=== PATIENT | male | born 1980 | race Caucasian/White ===

== ENCOUNTER 2016-12-17 18:22 | Emergency (ER) | payer BC ==
[2016-12-17 18:36] VITALS: BP 151/98; BMI 29.6
[2016-12-17] MEDS ORDERED: DEMEROL INJ IM ONE (18:54)
[2016-12-17] MEDS ORDERED: ZOFRAN INJ 4 MG VIAL IM ONE (18:54)
[2016-12-17] MEDS ORDERED: ZOFRAN INJ 4 MG VIAL ONE (18:58)
[2016-12-17] MEDS ORDERED: DEMEROL INJ ONE (18:58)
[2016-12-17 19:12] LABS: BASOPHILS # (AUTO) 0.1 X10^3/uL (0.0-0.1); BASOPHILS % (AUTO) 0.7 % (0.2-1.0); EOSINOPHILS # (AUTO) 0.4 x10^3/uL (0.0-0.2); EOSINOPHILS % (AUTO) 3.6 % (0.9-2.9); HEMATOCRIT 45.8 % (42.0-54.0); LYMPHOCYTES # (AUTO) 2.3 X10^3/uL (1.3-2.9); LYMPHOCYTES % (AUTO) 22.8 % (21.0-51.0); MEAN CORPUSCULAR HEMOGLOBIN 29.9 pg (27.0-34.0); MEAN CORPUSCULAR HGB CONC 34.9 g/dL (33.0-35.0); MEAN CORPUSCULAR VOLUME 85.7 fL (80.0-100.0); MEAN PLATELET VOLUME 8.4 fL (7.4-11.0); MONOCYTES # (AUTO) 0.6 x10^3/uL (0.3-0.8); MONOCYTES % (AUTO) 6.2 % (0.0-13.0); NEUTROPHILS # (AUTO) 6.7 x10^3/uL (2.2-4.8); NEUTROPHILS % (AUTO) 66.7 % (42.0-75.0); PLATELET COUNT 184 X10^3/uL (150.0-450.0); RED BLOOD COUNT 5.35 X10^6/uL (4.7-6.0); WHITE BLOOD COUNT 10.1 X10^3/uL (3.6-10.0)
--- NOTE | 2016-12-17 19:25 | CT ---
STUDY: CT HEAD WITHOUT CONTRAST HISTORY: Severe headaches, left side of head. TECHNIQUE: Multiple axial images of the head were obtained from the skull base to the vertex without administration of IV contrast. COMPARISON: None. FINDINGS: The sulci, cisterns and ventricles are age appropriate. There is no evidence of acute terr itorial infarction, hemorrhage, mass, mass effect, or midline shift. There are no abnormal intra-axia l or extra-axial fluid collections. There is no evidence of acute osseous abnormality or significant soft tissue swelling. Visualized par anasal sinuses and mastoid air cells are predominately clear. IMPRESSION: 1. No evidence of acute intracranial abnormality. Reported By:
[2016-12-17 19:29] LABS: BLOOD UREA NITROGEN 8 mg/dL (7-18); CALCIUM 8.8 mg/dL (8.5-10.1); CARBON DIOXIDE 29.2 mmol/L (21-32); CHLORIDE 102 mmol/L (98-107); SODIUM 139 mmol/L (136-145); TROPONIN I < 0.02 ng/mL (0-1.5); eGFR BLACK RACES > 60 (>60); eGFR NON BLACK RACES 56 (>60)
[2016-12-17 19:34] LABS: ALANINE AMINOTRANSFERASE 56 Units/L (12-78); ALBUMIN 3.7 g/dL (3.4-5.0); ALKALINE PHOSPHATASE 103 Units/L (46-116); ASPARTATE AMINO TRANSFERASE 18 Units/L (15-37); CKMB % 1.1 % (<4); CREATINE KINASE 94 Units/L (39-308); CREATINE KINASE MB < 1.0 ng/mL (0-4.0); TOTAL PROTEIN 6.8 g/dL (6.4-8.2)
--- NOTE | 2016-12-17 19:43 | DR.GENAD ---
HPI - PCP Primary Care Physician: KEV MARTIN - HPI Comment HPI Comment: SIMILAR PAIN ON AND OFF SOME TIME. PAIN ASSOCIATED TWITH TEARING OF THE LEFT EYE. MOTRIN RELIEVE SYMTOMS BUT TODAY, IT DID NOT HELP. ALSO NUMBNESS OF LEFT ARM IS NEW. VISION IS INTACT. PATIENT HAVE NYSTAGMUS BOTH EYES CHRONICALLY. - Complaint/Symptoms Chief Complaint Doctors Comments: PAIN LEFT BUDDHIST, BEHIND LEFT EYE AND LEFT ORBIT WITH LUE NUMBNESS TIMES ONE HOUR. Chief Complaint:: PT C/O PAIN TO THE LEFT SIDE OF HIS HEAD THAT STARTED ABOUT AN HOUR AGO AND THERE IS SOME NUMBNESS AND TINGLING.. Self Treatment fo Chief Complaint: 3 ADVIL LIQUID GELS - Nurses notes reviewed Nurses Notes Review: Yes - Source History Provided: Patient - Mode of Arrival Mode of Arrival: Ambulatory - Timing Onset of Chief Complaint: 12/17/16 Came on: Suddenly - Duration Duration: Constant Duration: Hours - Severity Severity: Moderate PMH - PMH Past Medical History: No Past Surgical History: No - Family History History of Family Medical Conditions: Yes Family Medical History: Diabetes Mellitus, Hypertension - Social History Does patient currently use any type of tobacco product: Yes Have you used tobacco products in the last 12 months: Yes Type of Tobacco Use: Cigarettes How many years tobacco product used: 10 Does any household member use tobacco: No Alcohol Use: None Do you use any recreational Drugs:: No Lives With: Family Lives Where: Home - infectious screening In the last 2 months have you had wt loss of >10#?: NO Have you had fever, night sweats or hemotysis?: No Have you traveled outside the country in the last 6 months?: No Isolation: Standard ROS - Review of Systems Constitutional: No Symptoms Reported, Other (PAIN LEFT BUDDHIST.) Eyes: Eye Pain (BEHIND LT AND ORBIT.), Tearing, Other (NYSTAGMUS, CHRONIC) ENTM: Ear Pain (LT). negative: Nose Discharge, Nose Congestion, Throat Pain Respiratoy: No Symptoms Reported Cardiovascular: No Symptoms Reported Gastrointestinal/Abdominal: No Symptoms Reported Genitourinary: No Symptoms Reported Neurological: Numbness (LEFT UPPER EXTREMITY.) Musculoskeletal: Left, Arm Integumentary: No Symptoms Reported Hematologic/Lymphatic: No Symptoms Reported Endocrine: No Symptoms Reported All Other Systems: Reviewed and Negative PE - Vital Signs Vitals: Temperature 98.4 F Pulse Rate 74 Respiratory Rate 20 Blood Pressure 151/98 O2 Sat by Pulse Oximetry 97 - General Limitations: No Limitations General Appearance: Alert - Head Head Exam: Other (PAIN LEFT BUDDHIST) - Eyes Eye exam: PERRL, EOMI, Other (NYSTAGMUS, CHRONIC.). negative: Scleral Icterus, Conjunctival Injection - ENT ENT Exam: Normal Oropharynx, Normal External Ear Exam, TM's Normal Bilaterally External Ear Exam: Normal External Inspection TM/Canal Exam: Bilateral Normal Nose Exam: Normal Nose Exam Mouth Exam: Normal Inspection Throat Exam: Normal Inspection - Neck Neck Exam: Normal Inspection - Chest Chest Inspection: Symmetric Chest Wall Rise - Respiratory Respiratory Exam: Normal Lung Sounds Bilat Respiratory Exam: Bilateral Clear to Auscultation - Cardiovascular Cardiovascular Exam: Regular Rate, Normal Rhythm, Normal Heart Sounds - Abdominal Exam Abdominal Exam: Normal Bowel Sounds, Soft. negative: Tenderness - Extremities Extremities Exam: Normal Inspection - Back Back Exam: Normal Inspection - Neurologic Neurological Exam: Alert, Oriented X3, CN II-XII Intact, Normal Gait, Reflexes Normal. negative: Motor Sensory Deficit - Psychiatric Psychiatric Exam: Anxious - Skin Skin Exam: Normal Color MDM - Additional Information Additional Information Obtained From: Family - Differential Diagnosis Differential Diagnosis: CLUSTER HEADACHE, CVA, TIA, NE, Course - Treatment Treatment: SEE ORDERS. IM PAIN MEDS IN ED. IMPROVED. EYE DROOPING AND LT ARM NUMBNESS RESOLVE. - Reevaluation 1st: Improved - Education/Counseling Education/Counseling: Patient, Family, Education Educated On: Treatment, Diagnosis, Needs for Follow Up ROR - Labs Reviewed Laboratory Results Reviewed?: Yes Result Diagrams: 12/17/16 19:02 12/17/16 19:02 Laboratory: WBC 10.1 X10^3/uL (3.6-10.0) H 12/17/16 19:02 RBC 5.35 X10^6/uL (4.7-6.0) 12/17/16 19:02 Hgb 16.0 g/dL (13.5-18.0) 12/17/16 19:02 Hct 45.8 % (42.0-54.0) 12/17/16 19:02 MCV 85.7 fL (80.0-100.0) 12/17/16 19:02 MCH 29.9 pg (27.0-34.0) 12/17/16 19:02 MCHC 34.9 g/dL (33.0-35.0) 12/17/16 19:02 RDW 13.0 % (11.6-16.5) 12/17/16 19:02 Plt Count 184 X10^3/uL (150.0-450.0) 12/17/16 19:02 MPV 8.4 fL (7.4-11.0) 12/17/16 19:02 Neut % 66.7 % (42.0-75.0) 12/17/16 19:02 Lymph % 22.8 % (21.0-51.0) 12/17/16 19:02 Ada % 6.2 % (0.0-13.0) 12/17/16 19:02 Eos % 3.6 % (0.9-2.9) H 12/17/16 19:02 Baso % 0.7 % (0.2-1.0) 12/17/16 19:02 Neut # 6.7 x10^3/uL (2.2-4.8) H 12/17/16 19:02 Lymph # 2.3 X10^3/uL (1.3-2.9) 12/17/16 19:02 Ada # 0.6 x10^3/uL (0.3-0.8) 12/17/16 19:02 Eos # 0.4 x10^3/uL (0.0-0.2) H 12/17/16 19:02 Baso # 0.1 X10^3/uL (0.0-0.1) 12/17/16 19:02 Absolute Nucleated RBC 0.0 /100WBC 12/17/16 19:02 Sodium 139 mmol/L (136-145) 12/17/16 19:02 Corrected Sodium TNP 12/17/16 19:02 Potassium 3.8 mmol/L (3.5-5.1) 12/17/16 19:02 Chloride 102 mmol/L (98-107) 12/17/16 19:02 Carbon Dioxide 29.2 mmol/L (21-32) 12/17/16 19:02 BUN 8 mg/dL (7-18) 12/17/16 19:02 Creatinine 1.50 mg/dL (0.70-1.30) H 12/17/16 19:02 Est GFR (MDRD) Af Amer > 60 (>60) 12/17/16 19:02 Est GFR (MDRD) Non-Af 56 (>60) L 12/17/16 19:02 Glucose 90 mg/dL (65-99) 12/17/16 19:02 Calcium 8.8 mg/dL (8.5-10.1) 12/17/16 19:02 Corrected Calcium TNP 12/17/16 19:02 Total Bilirubin 0.60 mg/dL (0.2-1.0) 12/17/16 19:02 AST 18 Units/L (15-37) 12/17/16 19:02 ALT 56 Units/L (12-78) 12/17/16 19:02 Alkaline Phosphatase 103 Units/L (46-116) 12/17/16 19:02 Creatine Kinase 94 Units/L (39-308) 12/17/16 19:02 CK-MB (CK-2) < 1.0 ng/mL (0-4.0) 12/17/16 19:02 CK/CKMB % Calc 1.1 % (<4) 12/17/16 19:02 Troponin I < 0.02 ng/mL (0-1.5) 12/17/16 19:02 Total Protein 6.8 g/dL (6.4-8.2) 12/17/16 19:02 Albumin 3.7 g/dL (3.4-5.0) 12/17/16 19:02 Globulin 3.1 g/dL (2.5-4.5) 12/17/16 19:02 Albumin/Globulin Ratio 1.2 Ratio (1.1-2.1) 12/17/16 19:02 - XRAY XRAY Interpreted by: Radiologist XRAY Findings: REPORT DISCUSS WITH PATIENT. - EKG Rhythm: NSR (EKG NOTED.) - Diagnosis Discharge Problem: Cluster headache Qualifiers: Headache chronicity pattern: chronic headache Intractability: intractable Qualified Code(s): G44.021 - Chronic cluster headache, intractable - Discharge Plan Disposition: HOME, SELF-CARE Condition: Stable Prescriptions: Ketorolac Tromethamine [Toradol Tab] 10 mg PO Q8H PRN #20 tab PRN Reason: Pain - Follow ups/Referrals Follow ups/Referrals: DORYS MARTIN [Primary Care Provider] - 12/18/16 - Instructions Instructions: Cluster Headache, [id number] Additional Instructions: RETURN TO ED IF WORSE.
[2016-12-17] MEDS ORDERED: TORADOL 60 MG VIAL IM ONE (19:54)
[2016-12-17] MEDS ORDERED: TORADOL 60 MG VIAL ONE (20:00)
[2016-12-17] MEDS ORDERED: PRELONE Elixir 15 MG UDC PO ONE (20:05)
[2016-12-17] MEDS ORDERED: PRELONE Elixir 15 MG UDC ONE ×2 (20:08→20:09)
== END 2016-12-17 20:16 | disposition home or self-care (01) ==
LOC: ER 18:41
DX: G44.021 Chronic cluster headache, intractable (principal)
CPT/HCPCS: 36415; 70450; 80053; 82550; 82553; 84484; 85025; 93005; 93010; 96372; 99283; J1885; J2175; J2405